=== PATIENT | female | born 1975 | race Caucasian/White ===

== ENCOUNTER 2017-04-30 12:38 | Day surgery (SDC) | payer BC ==
[~2017-04-30] VITALS: Ht 167.6 cm; Wt 81.2 kg
[2017-04-30] MEDS ORDERED: LACTATED RINGERS 1,000 ML IV SCH (13:26)
[2017-04-30] MEDS ORDERED: none per pt (13:27)
[2017-04-30 13:29] VITALS: BP 122/73
[2017-04-30 13:47] LABS: HCG UR SG 1.025 (1.003-1.030)
[2017-04-30] MEDS ORDERED: FENTANYL PF 100 MCG/2ML ONE (14:57)
[2017-04-30] MEDS ORDERED: MIDAZOLAM 1 MG/ML, 2ML ONE (14:57)
[2017-04-30] MEDS ORDERED: ONDANSETRON 2MG/ML, 2ML IVPush PRN (15:00)
[2017-04-30] MEDS ORDERED: METOPROLOL 1 MG/ML, 5ML IV PRN (15:00)
[2017-04-30] MEDS ORDERED: HYDROmorphone 1 MG/ML, 1ML IV PRN (15:00)
[2017-04-30] MEDS ORDERED: ALBUTEROL SULFATE 2.5 MG/3 ML NPPB PRN (15:00)
[2017-04-30] MEDS ORDERED: OXYcodone 5 MG/5 ML ORAL.SOL UDC PO PRN (15:00)
[2017-04-30] MEDS ORDERED: EPHEDRINE 50 MG/ML, 1ML IVPush PRN (15:00)
[2017-04-30] MEDS ORDERED: MEPERIDINE/PF 25MG/0.5ML IVPush PRN (15:00)
[2017-04-30] MEDS ORDERED: hydrALAzine 20 MG/ML, 1ML IV PRN (15:00)
[2017-04-30] MEDS ORDERED: LABETALOL 5MG/ML, 20ML IV PRN (15:00)
[2017-04-30] MEDS ORDERED: FENTANYL PF 100 MCG/2ML IV PRN (15:00)
[2017-04-30] MEDS ORDERED: ACETAMINOPHEN 325 MG TABLET PO PRN (15:00)
[2017-04-30] MEDS ORDERED: PROMETHAZINE 25 MG/ML, 1ML IV PRN (15:00)
[2017-04-30] MEDS ORDERED: PROPOFOL 10 MG/ML, 20ML ONE (16:00)
[2017-04-30] MEDS ORDERED: ONDANSETRON 2MG/ML, 2ML ONE (16:00)
[2017-04-30] MEDS ORDERED: DEXAMETHASONE 4 MG/ML, 1ML ONE ×2 (16:00)
[2017-04-30] MEDS ORDERED: CEFAZOLIN 1,000 MG ONE ×2 (16:00)
[2017-04-30] MEDS ORDERED: OXYcodone 5 MG/5 ML ORAL.SOL UDC ONE (18:02)
[2017-04-30] MEDS ORDERED: ACETAMINOPHEN 650 MG/20.3 ML UDC ONE (18:02)
== END 2017-04-30 18:50 | disposition home or self-care (01) ==
LOC: OUT 12:38
PROVIDERS: ATTEND Orthopaedic Surgery
DX: S93.421A Sprain of deltoid ligament of right ankle, initial encounter (principal); S93.491A Sprain of other ligament of right ankle, initial encounter; M21.6X1 Other acquired deformities of right foot; M25.371 Other instability, right ankle; Z98.890 Other specified postprocedural states; X58.XXXA Exposure to other specified factors, initial encounter; Y93.89 Activity, other specified; Y92.89 Other specified places as the place of occurrence of the external cause; Y99.8 Other external cause status
CPT/HCPCS: 27696; 29891; 29898; 81025; C1713; J0690; J1100; J2250; J2405; J2704; J3010; J7120